=== PATIENT | female | born 1995 | race Two or more races ===

== ENCOUNTER 2022-07-11 20:44 | Emergency (ER) | payer MEDICAID ==
[~2022-07-11] VITALS: Ht 144.8 cm; Wt 81.8 kg
[2022-07-11 20:55] VITALS: BP 131/89
[2022-07-11] MEDS ORDERED: ketorolac trometh inj. 60 MG/2 ML VIAL IM ONE (22:30)
[2022-07-11] MEDS ORDERED: SUMAtriptan succ. 6 MG/0.5ml vial SQ ONE (22:30)
[2022-07-11] MEDS ORDERED: acetaminophen 325mg tablet PO ONE (22:35)
[2022-07-12] MEDS ORDERED: LORA5TAB9 PO (00:14)
[2022-07-12] MEDS ORDERED: ACET650T58 PO (00:14)
[2022-07-12] MEDS ORDERED: IBUP-1985 PO (00:14)
== END 2022-07-12 00:46 | disposition home or self-care (01) ==
LOC: ER 20:44
DX: R51.9 Headache, unspecified (principal); Z20.822 Contact with and (suspected) exposure to COVID-19; R06.02 Shortness of breath; R09.89 Other specified symptoms and signs involving the circulatory and respiratory systems; Z88.0 Allergy status to penicillin; Z79.899 Other long term (current) drug therapy
CPT/HCPCS: 87502; 87503; 87635; 96372; 99284; C9803; J1885; J3030